=== PATIENT | female | born 1955 | race Two or more races ===

== ENCOUNTER 2019-07-29 19:18 | Inpatient (IN) | payer MEDICARE, MEDICAID ==
[~2019-07-29] VITALS: Ht 170.2 cm; Wt 63.5 kg
[2019-07-29] MEDS ORDERED: VANCOMYCIN 1 G PREMIX 200 ML IV ONE (19:45)
[2019-07-29] MEDS ORDERED: LEVETIRACETAM 500MG PREMIX 100 ML IV ONE (19:45)
[2019-07-29] MEDS ORDERED: PIPERACILLIN/TAZ 3.375G PREMIX 50 ML IV ONE (19:45)
[2019-07-29] MEDS ORDERED: SODIUM CHLORIDE 0.9% 1000ML BAG (SEPSIS BOLUS) IV ONE (19:45)
[2019-07-29] MEDS ORDERED: INSULIN REGULAR (HUMULIN R) UD 100 UNITS/ML SYR SUBCUT ONE (20:00)
[2019-07-29 20:04] LABS: BG BASE EXCESS -2.7 mmol/L (-2.0-2.0); BG CARBOXYHEMOGLOBIN 0.2 % (0.5-1.5); BG DEOXYHEMOGLOBIN 0.9 % (0.0-5.0); BG FRACTION INSPIRED OXYGEN 32; BG HCO3 ACT 21.6 mmol/L (22.0-26.0); BG METHEMOGLOBIN 0.3 % (0.0-1.5); BG OXYGEN SATURATION 99.1 % (92.0-98.5); BG OXYHEMOGLOBIN 98.6 % (94.0-97.0); BG PCO2 36.2 mmHg (35.0-45.0); BG PH 7.394 (7.350-7.450); BG PO2 211.3 mmHg (75.0-100.0); BG SAMPLE SITE RIGHT RADIAL; BG TOTAL HEMOGLOBIN 13.6 g/dL (12.0-18.0); BG VENT MODE NASAL CANNULA
[2019-07-29 20:11] LABS: BASOPHILS % 0.7 % (0.0-2.0); EOSINOPHILS % 1.3 % (0.0-5.0); HEMATOCRIT. 38.8 % (36.0-48.0); HEMOGLOBIN. 13.2 g/dL (12.0-16.0); LYMPHOCYTES % 21.9 % (20.0-50.0); MEAN CORPUSCULAR HEMOGLOBIN 30.8 pg (28.0-32.0); MEAN CORPUSCULAR VOLUME 90.9 fL (81.0-99.0); MEAN PLATELET VOLUME 7.7 fl (7.4-10.4); MONOCYTES % 6.1 % (2.0-8.0); PLATELET 255 x1000/uL (130-400); RED BLOOD CELL COUNT 4.27 mill/uL (4.2-5.4); RED CELL DISTRIBUTION WIDTH 12.6 % (11.6-14.6)
[2019-07-29 20:17] LABS: CHLORIDE 100 mEq/L (98-107)
[2019-07-29 20:19] LABS: PROTHROMBIN TIME 10.4 sec (9.6-11.0)
[2019-07-29 20:21] LABS: ETHANOL BLOOD < 10 mg/dL
[2019-07-29 20:24] LABS: BETA HYDROXYBUTYRATE 0.4 mMol/L (0.0-0.3)
[2019-07-29 21:39] LABS: CLARITY URINE CLEAR (CLEAR); COLOR URINE YELLOW (YELLOW); KETONES URINE NEGATIVE (NEGATIVE); LEUKOCYTE ESTERASE URINE TRACE (NEGATIVE); NITRITE URINE NEGATIVE (NEGATIVE); OCCULT BLOOD URINE 2+ (NEGATIVE); PROTEIN URINE NEGATIVE (NEGATIVE); SPECIFIC GRAVITY URINE 1.036 (1.005-1.030); UROBILINOGEN URINE 0.2 E.U./dL (0.2-1.0)
[2019-07-29] MEDS ORDERED: INSULIN REGULAR (HUMULIN R) 300UNITS/3ML SUBCUT NR (21:45)
[2019-07-29 21:52] LABS: *AMPHETAMINES SCREEN URINE NEGATIVE (NEGATIVE); *BARBITURATES SCREEN URINE NEGATIVE (NEGATIVE); *BENZODIAZEPINES SCREEN URINE PRESUMTIVE POSITIVE (NEGATIVE); *COCAINE SCREEN URINE NEGATIVE (NEGATIVE); CANNABINOID URINE SCREEN NEGATIVE (NEGATIVE); METHADONE URINE SCREEN NEGATIVE (NEGATIVE); OPIATES URINE SCREEN NEGATIVE (NEGATIVE); PHENCYCLIDINE URINE SCREEN NEGATIVE (NEGATIVE)
[2019-07-30] VITALS (21 sets, daily range): BP systolic 83–136; BP diastolic 48–95
[2019-07-30] MEDS ORDERED: ONDANSETRON HCL 4MG/2ML INJ IV PRN (00:15)
[2019-07-30] MEDS ORDERED: LORAZEPAM 2MG/ML CPJ IV PRN (00:15)
[2019-07-30] MEDS ORDERED: VANCOMYCIN 1 G PREMIX 200 ML IV SCH (02:08)
[2019-07-30] MEDS: ACETAMINOPHEN 325MG TABLET PO PRN (02:26)
[2019-07-30] MEDS: SODIUM CHLORIDE 0.9% 1,000 ML IV SCH ×2 (04:37→17:19)
[2019-07-30] MEDS ORDERED: CEFTRIAXONE 1 G PREMIX 50 ML IV SCH (05:00)
[2019-07-30] MEDS ORDERED: LEVOFLOXACIN 500MG PREMIX 100 ML IV SCH (06:00)
[2019-07-30 09:29] LABS: BASOPHILS % 0.3 % (0.0-2.0); EOSINOPHILS % 0.6 % (0.0-5.0); HEMATOCRIT. 38.4 % (36.0-48.0); HEMOGLOBIN. 12.9 g/dL (12.0-16.0); LYMPHOCYTES % 24.2 % (20.0-50.0); MEAN CORPUSCULAR HEMOGLOBIN 30.7 pg (28.0-32.0); MEAN CORPUSCULAR VOLUME 91.4 fL (81.0-99.0); MEAN PLATELET VOLUME 7.3 fl (7.4-10.4); MONOCYTES % 7.8 % (2.0-8.0); NEUTROPHILS % 67.1 % (40.0-76.0); PLATELET 217 x1000/uL (130-400); RED CELL DISTRIBUTION WIDTH 12.6 % (11.6-14.6)
[2019-07-30 09:30] LABS: CHLORIDE 105 mEq/L (98-107)
[2019-07-30 10:57] LABS: PARTIAL THROMBOPLASTIN TIME 22.8 sec (23.4-31.0); PROTHROMBIN TIME 10.7 sec (9.6-11.0)
[2019-07-30] MEDS ORDERED: DEXTROSE 50% WATER 50ML SYRINGE IV PRN (11:00)
[2019-07-30] MEDS ORDERED: TRAMADOL 50MG TABLET PO PRN (11:45)
[2019-07-30] MEDS: BLOOD SUGAR DIAGNOSTIC STRIP TEST SCH ×3 (11:51→20:55)
[2019-07-30] MEDS: ASPIRIN 81MG TABLET PO SCH (12:08)
[2019-07-30] MEDS: ENOXAPARIN 40MG/0.4ML SYR SUBCUT SCH (12:08)
[2019-07-30] MEDS: INSULIN LISPRO 100 UNITS/ML SUBCUT SCH ×3 (12:10→21:00)
[2019-07-30] MEDS: ATORVASTATIN CALCIUM 20MG TABLET PO SCH (20:41)
[2019-07-30] MEDS ORDERED: INSULIN GLARGINE UD 100 UNITS/ML SYR SUBCUT SCH (22:00)
[2019-07-30] MEDS: LEVETIRACETAM 500 MG in SODIUM CHLORIDE 0.9% 100 ML IV SCH ×2 (22:36→22:52)
[2019-07-31] VITALS (12 sets, daily range): BP systolic 95–115; BP diastolic 62–82
[2019-07-31] MEDS: CEFTRIAXONE 1 G PREMIX 50 ML IV SCH (06:18)
[2019-07-31] MEDS: BLOOD SUGAR DIAGNOSTIC STRIP TEST SCH ×4 (06:32→20:58)
[2019-07-31] MEDS: SODIUM CHLORIDE 0.9% 1,000 ML IV SCH ×2 (06:34→20:51)
[2019-07-31 06:37] LABS: BASOPHILS % 0.3 % (0.0-2.0); EOSINOPHILS % 1.4 % (0.0-5.0); HEMATOCRIT. 40.9 % (36.0-48.0); HEMOGLOBIN. 13.9 g/dL (12.0-16.0); LYMPHOCYTES % 28.3 % (20.0-50.0); MEAN CORPUSCULAR HEMOGLOBIN 30.7 pg (28.0-32.0); MEAN CORPUSCULAR VOLUME 90.6 fL (81.0-99.0); MEAN PLATELET VOLUME 7.8 fl (7.4-10.4); MONOCYTES % 6.3 % (2.0-8.0); NEUTROPHILS % 63.7 % (40.0-76.0); PLATELET 231 x1000/uL (130-400); RED BLOOD CELL COUNT 4.51 mill/uL (4.2-5.4); RED CELL DISTRIBUTION WIDTH 12.9 % (11.6-14.6)
[2019-07-31 06:45] LABS: CHLORIDE 107 mEq/L (98-107)
[2019-07-31] MEDS: ASPIRIN 81MG TABLET PO SCH (08:06)
[2019-07-31] MEDS: LEVETIRACETAM 500 MG in SODIUM CHLORIDE 0.9% 100 ML IV SCH (08:07)
[2019-07-31] MEDS: INSULIN LISPRO 100 UNITS/ML SUBCUT SCH ×6 (08:07→21:12)
[2019-07-31] MEDS: ENOXAPARIN 40MG/0.4ML SYR SUBCUT SCH (08:07)
[2019-07-31] MEDS: ACETAMINOPHEN 325MG TABLET PO PRN (18:20)
[2019-07-31] MEDS: LEVETIRACETAM 500MG TABLET PO SCH (20:51)
[2019-07-31] MEDS: ATORVASTATIN CALCIUM 20MG TABLET PO SCH (20:52)
[2019-07-31] MEDS: INSULIN GLARGINE UD 100 UNITS/ML SYR SUBCUT SCH (22:00)
[2019-08-01] VITALS (32 sets, daily range): BP systolic 74–136; BP diastolic 31–80
[2019-08-01] MEDS: CEFTRIAXONE 1 G PREMIX 50 ML IV SCH (05:53)
[2019-08-01] MEDS: BLOOD SUGAR DIAGNOSTIC STRIP TEST SCH ×4 (06:17→20:33)
[2019-08-01] MEDS: INSULIN LISPRO 100 UNITS/ML SUBCUT SCH ×8 (06:18→21:08)
[2019-08-01] MEDS: CLOPIDOGREL 75MG TABLET PO SCH (08:20)
[2019-08-01] MEDS: LEVETIRACETAM 500MG TABLET PO SCH ×2 (08:20→21:08)
[2019-08-01] MEDS: ENOXAPARIN 40MG/0.4ML SYR SUBCUT SCH (08:20)
[2019-08-01] MEDS: ASPIRIN 81MG TABLET PO SCH (08:20)
[2019-08-01] MEDS: SODIUM CHLORIDE 0.9% 1,000 ML IV SCH (12:01)
[2019-08-01 14:27] LABS: BASOPHILS % 0.6 % (0.0-2.0); EOSINOPHILS % 1.6 % (0.0-5.0); HEMATOCRIT. 41.5 % (36.0-48.0); LYMPHOCYTES % 36.5 % (20.0-50.0); MEAN CORPUSCULAR HEMOGLOBIN 30.4 pg (28.0-32.0); MEAN CORPUSCULAR VOLUME 90.1 fL (81.0-99.0); MEAN PLATELET VOLUME 7.4 fl (7.4-10.4); MONOCYTES % 7.3 % (2.0-8.0); PLATELET 242 x1000/uL (130-400); RED CELL DISTRIBUTION WIDTH 12.5 % (11.6-14.6)
[2019-08-01 14:45] LABS: CHLORIDE 106 mEq/L (98-107)
[2019-08-01] MEDS: METOPROLOL TARTRATE 25MG TABLET PO SCH (17:30)
[2019-08-01] MEDS ORDERED: SODIUM CHLORIDE 0.9% 500 ML IV SCH ×2 (19:05→20:30)
[2019-08-01] MEDS: ATORVASTATIN CALCIUM 20MG TABLET PO SCH (21:08)
[2019-08-01] MEDS: INSULIN GLARGINE UD 100 UNITS/ML SYR SUBCUT SCH (21:08)
[2019-08-02] VITALS (43 sets, daily range): BP systolic 84–141; BP diastolic 48–92
[2019-08-02] MEDS: SODIUM CHLORIDE 0.9% 1,000 ML IV SCH ×2 (02:26→14:08)
[2019-08-02] MEDS: ACETAMINOPHEN 325MG TABLET PO PRN (02:51)
[2019-08-02] MEDS: INSULIN LISPRO 100 UNITS/ML SUBCUT SCH ×8 (05:44→20:41)
[2019-08-02] MEDS: BLOOD SUGAR DIAGNOSTIC STRIP TEST SCH ×4 (05:44→20:46)
[2019-08-02] MEDS: CEFTRIAXONE 1 G PREMIX 50 ML IV SCH (05:51)
[2019-08-02] MEDS: ENOXAPARIN 40MG/0.4ML SYR SUBCUT SCH (08:54)
[2019-08-02] MEDS: LEVETIRACETAM 500MG TABLET PO SCH ×2 (08:54→20:25)
[2019-08-02] MEDS: ASPIRIN 81MG TABLET PO SCH (08:54)
[2019-08-02] MEDS: CLOPIDOGREL 75MG TABLET PO SCH (08:54)
[2019-08-02] MEDS: METOPROLOL TARTRATE 25MG TABLET PO SCH ×2 (08:54→20:39)
[2019-08-02 11:57] LABS: BASOPHILS % 0.3 % (0.0-2.0); EOSINOPHILS % 1.9 % (0.0-5.0); HEMOGLOBIN. 12.3 g/dL (12.0-16.0); LYMPHOCYTES % 30.4 % (20.0-50.0); MEAN CORPUSCULAR HEMOGLOBIN 30.6 pg (28.0-32.0); MEAN CORPUSCULAR VOLUME 89.9 fL (81.0-99.0); MEAN PLATELET VOLUME 7.3 fl (7.4-10.4); MONOCYTES % 6.5 % (2.0-8.0); NEUTROPHILS % 60.9 % (40.0-76.0); PLATELET 237 x1000/uL (130-400); RED CELL DISTRIBUTION WIDTH 12.8 % (11.6-14.6)
[2019-08-02 12:04] LABS: CHLORIDE 107 mEq/L (98-107)
[2019-08-02] MEDS: ATORVASTATIN CALCIUM 20MG TABLET PO SCH (20:25)
[2019-08-02] MEDS: INSULIN GLARGINE UD 100 UNITS/ML SYR SUBCUT SCH (22:18)
[2019-08-03] VITALS (10 sets, daily range): BP systolic 108–138; BP diastolic 61–81
[2019-08-03] MEDS: SODIUM CHLORIDE 0.9% 1,000 ML IV SCH ×2 (01:48→15:08)
[2019-08-03] MEDS: CEFTRIAXONE 1 G PREMIX 50 ML IV SCH (06:14)
[2019-08-03] MEDS: BLOOD SUGAR DIAGNOSTIC STRIP TEST SCH ×4 (06:15→20:24)
[2019-08-03] MEDS: INSULIN LISPRO 100 UNITS/ML SUBCUT SCH ×8 (06:36→21:49)
[2019-08-03] MEDS: ENOXAPARIN 40MG/0.4ML SYR SUBCUT SCH (09:25)
[2019-08-03] MEDS: CLOPIDOGREL 75MG TABLET PO SCH (09:26)
[2019-08-03] MEDS: METOPROLOL TARTRATE 25MG TABLET PO SCH ×2 (09:27→20:23)
[2019-08-03] MEDS: ASPIRIN 81MG TABLET PO SCH (09:27)
[2019-08-03] MEDS: LEVETIRACETAM 500MG TABLET PO SCH ×2 (09:27→20:22)
[2019-08-03] MEDS ORDERED: ENOXAPARIN 40MG/0.4ML SYR SUBCUT SCH (19:15)
[2019-08-03] MEDS ORDERED: BISACODYL 5MG TABLET PO PRN (19:15)
[2019-08-03] MEDS: DOCUSATE SODIUM 100MG CAPSULE PO SCH (20:22)
[2019-08-03] MEDS: ATORVASTATIN CALCIUM 20MG TABLET PO SCH (20:22)
[2019-08-03] MEDS: INSULIN GLARGINE UD 100 UNITS/ML SYR SUBCUT SCH (23:21)
[2019-08-04] VITALS (15 sets, daily range): BP systolic 99–132; BP diastolic 60–88
[2019-08-04] MEDS: SODIUM CHLORIDE 0.9% 1,000 ML IV SCH (04:14)
[2019-08-04] MEDS: BLOOD SUGAR DIAGNOSTIC STRIP TEST SCH ×3 (06:40→16:50)
[2019-08-04] MEDS: CEFTRIAXONE 1 G PREMIX 50 ML IV SCH (06:40)
[2019-08-04] MEDS: INSULIN LISPRO 100 UNITS/ML SUBCUT SCH ×5 (07:20→17:21)
[2019-08-04] MEDS: METOPROLOL TARTRATE 25MG TABLET PO SCH (08:38)
[2019-08-04] MEDS: ENOXAPARIN 40MG/0.4ML SYR SUBCUT SCH (08:38)
[2019-08-04] MEDS: ASPIRIN 81MG TABLET PO SCH (08:38)
[2019-08-04] MEDS: DOCUSATE SODIUM 100MG CAPSULE PO SCH ×2 (08:38→17:20)
[2019-08-04] MEDS: LEVETIRACETAM 500MG TABLET PO SCH (08:38)
[2019-08-04] MEDS: CLOPIDOGREL 75MG TABLET PO SCH (08:39)
[2019-08-04] MEDS ORDERED: INSULIN GLARGINE UD 100 UNITS/ML SYR SUBCUT SCH (22:00)
== END 2019-08-04 18:05 | DRG 65 ==
LOC: ER 19:18 → 3WST 23:39 → EDBEDREQTM 23:42 → EDBEDREQ 23:42 → SUPCPDRO 07-30 00:06 → ENRESERV 07-30 02:18 → MICUNO 07-30 10:00 → 3WST 07-30 13:30 → MICUNO 08-01 13:40 → 3WST 08-02 10:40
PROVIDERS: ADMIT Hospitalist; ATTEND Hospitalist
DX: I63.511 Cerebral infarction due to unspecified occlusion or stenosis of right middle cerebral artery (principal); G40.89 Other seizures; E11.65 Type 2 diabetes mellitus with hyperglycemia; Z59.0 Homelessness; F31.9 Bipolar disorder, unspecified; H54.7 Unspecified visual loss; I10 Essential (primary) hypertension; I25.10 Atherosclerotic heart disease of native coronary artery without angina pectoris; Z83.3 Family history of diabetes mellitus; Z88.5 Allergy status to narcotic agent; Z79.899 Other long term (current) drug therapy
CPT/HCPCS: 36415; 36600; 70551; 71045; 80048; 80061; 80305; 80320; 81003; 82010; 82375; 82805; 82962; 83036; 83605; 83735; 83880; 84145; 84484; 87077; 92523; 92610; 93005; 93306; 93880; 93970; 97110; 97116; 97162; 97167; 97530; 99291; J0696; J1650; J1815; J1953; J1956; J2543; J3370; J7030; J7040; J7050; G0480